=== PATIENT | female | born 2000 | race Caucasian/White ===

== ENCOUNTER 2023-05-02 13:47 | Emergency (ER) | payer OTHER ==
[~2023-05-02] VITALS: Ht 154.9 cm; Wt 51.3 kg
[2023-05-02 14:26] VITALS: BP 128/86; PULSE 72; RESP 16; TEMP 97.8; O2SAT 99
[2023-05-02] MEDS ORDERED: ONDANSETRON 4 MG ODT PO ONE (14:35)
[2023-05-02] MEDS ORDERED: ACETAMINOPHEN 325 MG TAB PO ONE (14:35)
--- NOTE | 2023-05-02 14:35 | NUR ---
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 PMH: DENIES
[2023-05-02] MEDS ORDERED: ONDA-188 PO (14:37)
[2023-05-02 14:51] VITALS: BP 120/65; PULSE 71; RESP 16; TEMP 97.8; O2SAT 99
== END 2023-05-02 14:52 | disposition home or self-care (01) ==
LOC: MED 13:47
DX: S06.0X0A Concussion without loss of consciousness, initial encounter (principal); W22.8XXA Striking against or struck by other objects, initial encounter; Y93.89 Activity, other specified; Y92.89 Other specified places as the place of occurrence of the external cause; Y99.8 Other external cause status
CPT/HCPCS: 99283; Q0162

== ENCOUNTER 2023-08-09 11:38 | Emergency (ER) | payer OTHER ==
[~2023-08-09] VITALS: Ht 154.9 cm; Wt 51.3 kg
[~2023-08-09 11:38] MED LIST: ONDA-188 PO
[2023-08-09 11:59] VITALS: BP 106/69; PULSE 69; RESP 15; TEMP 97.8; O2SAT 99
[2023-08-09] MEDS ORDERED: IBUPROFEN 400 MG TAB PO ONE (13:00)
[2023-08-09] MEDS ORDERED: IBUP-2213 PO (13:21)
[2023-08-09] MEDS ORDERED: METH-1681 PO (13:21)
[2023-08-09 13:40] VITALS: BP 106/69; PULSE 69; RESP 15; TEMP 97.8; O2SAT 99
== END 2023-08-09 13:41 | disposition home or self-care (01) ==
LOC: MED 11:38
DX: S39.012A Strain of muscle, fascia and tendon of lower back, initial encounter (principal); Z79.899 Other long term (current) drug therapy; Z79.1 Long term (current) use of non-steroidal anti-inflammatories (NSAID); X50.0XXA Overexertion from strenuous movement or load, initial encounter; Y92.89 Other specified places as the place of occurrence of the external cause; Y93.89 Activity, other specified; Y99.0 Civilian activity done for income or pay
CPT/HCPCS: 72110; 99283

== ENCOUNTER 2023-08-15 10:03 | Emergency (ER) | payer OTHER ==
[~2023-08-15] VITALS: Ht 154.9 cm; Wt 50.3 kg
[~2023-08-15 10:03] MED LIST changes: +IBUP-2213 PO; +METH-1681 PO
[2023-08-15 10:36] VITALS: BP 102/59; PULSE 80; RESP 18; TEMP 98.1; O2SAT 100
[2023-08-15] MEDS ORDERED: KETOROLAC 30 MG/ML VIAL IM ONE (12:35)
[2023-08-15 13:06] VITALS: BP 102/59; PULSE 80; RESP 18; TEMP 98.1; O2SAT 100
[2023-08-15] MEDS ORDERED: ONDANSETRON 4 MG/2 ML VIAL IVP ONE (13:40)
[2023-08-15] MEDS ORDERED: IBUP-2213 PO (14:07)
[2023-08-15] MEDS ORDERED: CYCL-711 PO (14:07)
[2023-08-15] MEDS ORDERED: LID5T TP (14:07)
== END 2023-08-15 14:16 | disposition home or self-care (01) ==
LOC: MED 10:03
DX: S39.012A Strain of muscle, fascia and tendon of lower back, initial encounter (principal); Z79.899 Other long term (current) drug therapy; Z79.1 Long term (current) use of non-steroidal anti-inflammatories (NSAID); X58.XXXA Exposure to other specified factors, initial encounter; Y92.89 Other specified places as the place of occurrence of the external cause; Y93.89 Activity, other specified; Y99.0 Civilian activity done for income or pay
CPT/HCPCS: 72133; 81025; 96372; 96374; 99285; J1885; J2405; Q9967

== ENCOUNTER 2023-09-29 11:53 | Emergency (ER) | payer MEDICAID, OTHER ==
[~2023-09-29] VITALS: Ht 154.9 cm; Wt 51.4 kg
[~2023-09-29 11:53] MED LIST changes: +CYCL-711 PO; +LID5T TP
[2023-09-29 12:03] VITALS: BP 120/69; PULSE 91; RESP 20; TEMP 97.7; O2SAT 99
[2023-09-29] MEDS ORDERED: IBUPROFEN 600 MG TAB PO ONE (12:40)
[2023-09-29] MEDS ORDERED: CYCL-711 PO (13:00)
[2023-09-29] MEDS ORDERED: LID5T TP (13:00)
[2023-09-29] MEDS ORDERED: IBUP-2213 PO (13:00)
== END 2023-09-29 13:27 | disposition home or self-care (01) ==
LOC: MED 11:53
DX: S39.012A Strain of muscle, fascia and tendon of lower back, initial encounter (principal); Z79.899 Other long term (current) drug therapy; Z79.1 Long term (current) use of non-steroidal anti-inflammatories (NSAID); X58.XXXA Exposure to other specified factors, initial encounter; Y92.89 Other specified places as the place of occurrence of the external cause; Y93.89 Activity, other specified; Y99.8 Other external cause status
CPT/HCPCS: 81002; 81025; 99283

== ENCOUNTER 2024-02-10 10:44 | Emergency (ER) | payer MEDICAID ==
[~2024-02-10] VITALS: Ht 154.9 cm; Wt 51.7 kg
[2024-02-10 10:48] VITALS: BP 110/70; PULSE 87; RESP 18; TEMP 98.7; O2SAT 100
[2024-02-10] MEDS ORDERED: IBUP-2213 PO (11:20)
[2024-02-10] MEDS ORDERED: METO-486 PO (11:20)
[2024-02-10] MEDS: METOCLOPRAMIDE 10 MG TAB PO ONE (11:23)
[2024-02-10] MEDS: IBUPROFEN 600 MG TAB PO ONE (11:25)
[2024-02-10 11:30] VITALS: BP 118/74; PULSE 80; RESP 16; TEMP 98.7; O2SAT 100
== END 2024-02-10 11:30 | disposition home or self-care (01) ==
LOC: MED 10:44
DX: S06.0X0A Concussion without loss of consciousness, initial encounter (principal); Z79.899 Other long term (current) drug therapy; X58.XXXA Exposure to other specified factors, initial encounter; Y93.89 Activity, other specified; Y92.89 Other specified places as the place of occurrence of the external cause; Y99.8 Other external cause status
CPT/HCPCS: 81025; 99283; J8597

== ENCOUNTER 2024-02-15 21:37 | Emergency (ER) | payer MEDICAID ==
[~2024-02-15] VITALS: Ht 154.9 cm; Wt 51.7 kg
[~2024-02-15 21:37] MED LIST changes: +METO-486 PO
[2024-02-15 21:52] VITALS: BP 121/82; PULSE 88; RESP 16; TEMP 98.7; O2SAT 99
[2024-02-15 23:55] VITALS: BP 121/82; PULSE 88; RESP 16; TEMP 98.7; O2SAT 99
== END 2024-02-15 23:55 | disposition home or self-care (01) ==
LOC: MED 21:37
DX: S06.0X0A Concussion without loss of consciousness, initial encounter (principal); Z79.899 Other long term (current) drug therapy; W22.8XXA Striking against or struck by other objects, initial encounter; Y93.89 Activity, other specified; Y92.89 Other specified places as the place of occurrence of the external cause; Y99.8 Other external cause status
CPT/HCPCS: 70450; 99284